=== PATIENT | male | born 1950 | race Caucasian/White ===

== ENCOUNTER → 2024-03-25 | Outpatient (CLI) | payer OTHER, SELFPAY ==
--- NOTE | 2024-03-25 09:39 | XR_ITS ---
Examination: Bilateral shoulders 6 views Technique: Shoulder AP internal rotation, AP external rotation, Y view each shoulder total 6 views Exam date and time :November 23, 2024 0945 hours INDICATIONS: Patient fell last year with injury to both shoulders, bilateral shoulder pain FINDINGS: No bilateral shoulder fracture or dislocation Moderate narrowing glenohumeral joints bilaterally Mild left shoulder calcific tendinitis IMPRESSION: No bilateral shoulder fracture or dislocation Moderate narrowing glenohumeral joints bilaterally
--- NOTE | 2024-03-25 09:39 | XR_ITS ---
Examination: Bilateral hips, AP pelvis, 5 views Technique: AP, lateral views both hips, AP pelvis, 5 views Exam date and time: March 25, 2024 0945 hours INDICATIONS: Patient fell last year with injury to both hips, persistent bilateral hip pain FINDINGS: Significant osteopenia Moderate to advanced narrowing right hip joint Advanced narrowing left hip joint with sclerosis and subarticular cyst formation left femoral head Sclerotic areas in the sacral regions No acute hip fracture Old deformity of the left femoral neck IMPRESSION: Advanced left hip osteoarthritis Suspicious for avascular necrosis left femoral head, please see the MRI hip report June 21, 2023
== END | disposition home or self-care (01) ==
LOC: CDIM 09:15
PROVIDERS: PCP Internal Medicine; Referring Provider Internal Medicine; Visit Provider Internal Medicine
DX: M16.12 Unilateral primary osteoarthritis, left hip (principal); M25.552 Pain in left hip; M25.551 Pain in right hip; M25.512 Pain in left shoulder; M25.511 Pain in right shoulder; S79.912S Unspecified injury of left hip, sequela; S79.911S Unspecified injury of right hip, sequela; S49.92XS Unspecified injury of left shoulder and upper arm, sequela; S49.91XS Unspecified injury of right shoulder and upper arm, sequela; W19.XXXS Unspecified fall, sequela
CPT/HCPCS: 73030; 73523

== ENCOUNTER → 2024-05-01 | Outpatient (CLI) | payer OTHER, SELFPAY ==
[2024-05-01 08:12] LABS: Collection Type, Urine Clean Catch
[2024-05-01 08:37] LABS: Basophils % (Auto) 1 % (0-2.5); Eosinophils # (Auto) 0.2 Thou/mm3 (0.0-0.5); Eosinophils % (Auto) 2 % (0-10); Hematocrit 44.3 % (41.0-53.0); Hemoglobin 15.8 g/dL (13.5-16.0); Immature Granulocytes % (Auto) 0 % (0-0); Immature Granulocytes Auto 0.02 Thou/mm3 (0.00-0.00); Lymphocytes # (Auto) 2.1 Thou/mm3 (1.0-4.8); Lymphocytes % (Auto) 26 % (10-50); Mean Corpuscular HGB Conc 35.7 g/dl (31.0-37.0); Mean Corpuscular Hemoglobin 31.9 pg (25.0-35.0); Mean Corpuscular Volume 89 fL (80-100); Monocytes # (Auto) 0.6 Thou/mm3 (0.0-0.8); Monocytes % (Auto) 7 % (0-12); Neutrophils # (Auto) 5.1 Thou/mm3 (1.8-7.7); Neutrophils % (Auto) 63 % (37-80); Nucleated Red Blood Cell % 0 /100 WBC (0); Platelet Count 162 Thou/mm3 (140-440); RDW Standard Deviation 39.3 fL (35.1-43.9); Red Blood Count 4.96 Miln/mm3 (4.50-5.90)
[2024-05-01 08:45] LABS: Glucose Estimated Average 189 mg/dL (80-131); Hemoglobin A1C 8.2 % Hgb (4.8-6.0)
[2024-05-01 08:49] LABS: Bilirubin,Urine Negative (Negative); Blood,Urine Negative (Negative); Clarity,Urine Clear (Clear/Hazy); Color,Urine Yellow (Lt Yel-Yel); Glucose, Urine Negative (Negative); Ketones,Urine Negative (Negative); Leukocyte Esterase,Urine Negative (Negative); Nitrite,Urine Negative (Negative); Protein,Urine 1+ (Neg - Trace); RBC,Urine 1 /hpf (0-3); Specific Gravity,Urine 1.031 (1.001-1.035); Squamous Epithelial Cell,Urine 2 /hpf (0-5); Urobilinogen,Urine Negative mg/dL (0.0-1.0); WBC,Urine 1 /hpf (0-5)
[2024-05-01 08:55] LABS: Alanine Aminotransferase 57 U/L (10-49); Albumin, Serum 4.6 gm/dL (3.4-4.8); Alkaline Phosphatase 88 U/L (46-116); Anion Gap 10 (7-16); Aspartate Amino Transferase 49 U/L (0-34); BUN/Creatinine Ratio 19 Ratio (12-20); Bilirubin,Total 0.6 mg/dL (0.3-1.2); Blood Urea Nitrogen 21 mg/dL (9-23); Calcium 9.6 mg/dL (8.3-10.6); Calcium (Corrected) 9.6 mg/dL (8.5-10.1); Cardiac Risk Estimate 4.7 RATIO (4.0-6.7); Chloride 107 mMol/L (98-107); Cholesterol 154 mg/dL (132-200); Creatinine (Component) 1.1 mg/dL (0.6-1.3); Free T4 (Free Thyroxine) 1.09 ng/dL (0.89-1.76); Globulin 2.3 gm/dL (2.3-3.5); Glucose 148 mg/dL (74-106); HDL Cholesterol 33 mg/dL (40-60); LDL Cholesterol,Calculated 76 mg/dL (0-130); Osmolality,Calculated 287 (275-295); Potassium 4.4 mMol/L (3.4-5.1); Sodium 141 mMol/L (136-145); Thyroid Stimulating Hormone 4.96 uIU/mL (0.55-4.78); Total Protein 6.9 gm/dL (5.7-8.2); Triglycerides 226 mg/dL (30-150); eGFR > 60 See Note
[2024-05-01 09:39] LABS: Creatinine MALB Rnd Ur 212 mg/dL (30-125); Microalbumin Creat Ratio 51 mg/gCrea (<30); Microalbumin, Random Urine 108 mg/L (0-300)
== END | disposition home or self-care (01) ==
PROVIDERS: PCP Internal Medicine; Referring Provider Internal Medicine; Visit Provider Internal Medicine
DX: Z00.00 Encounter for general adult medical examination without abnormal findings (principal); I12.9 Hypertensive chronic kidney disease with stage 1 through stage 4 chronic kidney disease, or unspecified chronic kidney disease; E11.22 Type 2 diabetes mellitus with diabetic chronic kidney disease; N18.31 Chronic kidney disease, stage 3a; E78.5 Hyperlipidemia, unspecified; E03.9 Hypothyroidism, unspecified; E11.65 Type 2 diabetes mellitus with hyperglycemia; E78.49 Other hyperlipidemia; M19.90 Unspecified osteoarthritis, unspecified site; M51.372 Other intervertebral disc degeneration, lumbosacral region with discogenic back pain and lower extremity pain; Z13.820 Encounter for screening for osteoporosis; Z98.1 Arthrodesis status
CPT/HCPCS: 36415; 80053; 80061; 81001; 82043; 82570; 83036; 84439; 84443; 85025

== ENCOUNTER 2024-05-21 08:16 | Outpatient (AMB) | payer OTHER, SELFPAY ==
[2024-05-21 08:46] VITALS: BP 112/78; PULSE 92; RESP 19; TEMP 36.6; O2SAT 95; BMI 26.7
--- NOTE | 2024-05-21 08:46 | ORTHONT_ITS ---
Vital signs 05/21/24 08:46 Height 1.88 m Height Method Stated Weight 94.574 kg Weight Measurement Method Standing Scale BMI 26.7 BP 112/78 Blood Pressure Source Automatic Cuff Blood Pressure Location Right Upper Arm Position Sitting Respiration 19 Pulse 92 Pulse Source Monitor Temp 97.8 F Temp Source Temporal Artery Scan Pulse Oximetry (%) 95 Oxygen Delivery Method Room Air Comment PATIENT FORGOT TO BRING IN MEDS Med/Allergies Allergies & Medications Allergies No Known Allergies Allergy (Verified 05/21/24 08:46) Medication Reconciliation gabapentin 300 mg capsule 600 mg PO BID #0 caps 10/17/15 [History Confirmed 09/07/21] metformin 500 mg tablet (Glucophage) 1,000 mg PO BIDWM #0 tabs 10/17/15 [History Confirmed 09/07/21] amiodarone 200 mg tablet 200 mg PO QDAY 08/07/19 [History Confirmed 09/07/21] aspirin 81 mg tablet,delayed release 81 mg PO QDAY 08/07/19 [History Confirmed 09/07/21] insulin glargine U-300 conc 300 unit/mL (1.5 mL) subcutaneous pen (Toujeo SoloStar U-300 Insulin) 50 unit subcut QDAY PRN high sugar 08/07/19 [History Confirmed 09/07/21] levothyroxine 25 mcg tablet 25 mcg PO QDAY 05/16/20 [History Confirmed 09/07/21] vitamin A-vitamin C-vit E-min tablet 1 tab PO QDAY 05/16/20 [History Confirmed 09/07/21] apixaban 2.5 mg tablet (Eliquis) 2.5 mg PO BID #60 tabs 09/28/20 [Rx Confirmed 09/07/21] atorvastatin 40 mg tablet (Lipitor) 40 mg PO QPM #30 tabs 09/28/20 [Rx Confirmed 09/07/21] Exam Exam Patient is in no acute distress and is cooperative with the examination today. Breathing is nonlabored. In no respiratory distress. Patient has no paraspinal tenderness. Spinal deformity cannot be appreciated. The gait of the patient is nonantalgic Bilateral extremities were evaluated and demonstrates sensation intact to light touch. Palpable pedal pulses are present. No significant edema is present. Bilateral knees were examined and the patient has full strength and range of motion.. The right hip was examined. Patient was able to flex to 90 degrees, adduct to 30 degrees, abduct to 40 degrees, internally rotate to 20 degrees, and externally rotate to 20 degrees. Patient has a negative logroll. Stinchfield is negative. The patient is nontender diffusely to touch. The left hip was examined. Patient was able to flex to 90 degrees, adduct to 30 degrees, abduct to 40 degrees, internally rotate to 20 degrees, and externally rotate to 20 degrees. Patient has a negative logroll. The stinchfield is negative. X-rays demonstrate significant joint space narrowing of the left hip. Assessment and Plan Problem List (1) Arthritis of left hip: Status: Acute Plan: Patient is a 74-year-old male with left hip arthritis and avascular necrosis. Interestingly, pain is actually in the buttocks he has a history of recent spine surgery. He has pain that radiates down both legs. He has a completely benign hip exam and has preserved logroll. I do think he has hip issues but I do not think this is the cause of his pain. We are getting his MRI of the lumbar spine Plan Patient is a 74-year-old male with left hip avascular necrosis and severe arthri tic changes. He has a history of spine surgery and all the pain is actually in his buttocks. His hip examination is completely benign. We will order an MRI of his lumbar spine as the majority of his pain appears to be coming from the spine as he has no pain with logroll and a very benign hip exam Advanced Care Planning Discussion Advance care planning discussed with:: patient Office Procedures GNS Level of Care Nursing/Assessment Patient Status: Established Patient Nursing Assessment/Reassesment: Medication Reconciliation, Update PMH in EMR and Vital Signs Coordination of Care: Complex Care and Chronic Disease 1-5, Education Complex Pt/Fam, Consent,records obtained, informed consent, Results/Orders obtained and Staff clarify orders Established Patient Charge Established Patient Point Assignment: 95 Established Patient Point Charge: EP Level 3 (80-115) MA Intake Visit Data Collection New Patient or Established: Established Patient (seen at [facility] within 3 years) Reason for Visit:: BILATERAL HIP PAIN Seen by Clinical Staff ONLY (RN/MA): No Verbal consent obtained for Telemed visit?: No Paraoptometric Required: No PCP or OBGYN visit in last 3 months: Yes Hx Now: No Do You Feel Safe at Home: Yes Authorities Contacted: N/A Questionairres Past Medical History Past Medical History Have you ever been diagnosed with any of the following: Neurological Problems Transient Ischemic Attacks (TIA): Yes Seizures: No Peripheral Neuropathy: Yes Cardiology Problems Myocardial Infarction: Yes Cardiac Arrhythmia: No Atrial Fibrillation: Yes Angina: No Coronary Artery Disease: No Atherosclerotic Heart Disease: No Peripheral Vascular Disease: No Aneurysm: No Congestive Heart Failure: No Congenital Heart Disease: No Valvular Heart Disease: No Rheumatic Fever: No Cardiomyopathy: No Edema: No Pericarditis: No Cellulitis: No Deep Vein Thrombosis: No Hypertension: Yes Varicose Veins: No Respiratory Problems Chronic Obstructive Pulmonary Disease (COPD): No Asthma: No Stomache/Intestinal Problems Gastrointestinal Bleed: Yes Genital/Urinary Problems Renal Disease: No Musculoskeletal Problems Arthritis: Yes Endocrine Problems Diabetes Mellitus Type 1: No Diabetes Mellitus Type 2: Yes Hypoglycemia: No Albaro's Syndrome: No [place]'s Disease: No Hyperthyroidism: No Hypothyroidism: No Parathyroid Disease: No Pituitary Disease: No Systemic Lupus Erythematosus: No Syndrome of Inappropriate Antidiuretic Hormone: No Adrenal Disease: No Blood Problems Sickle Cell Disease: No Psychologic Problems Anxiety: Yes Other Problems Blood Transfusions: No Blood Transfusion Reaction: No Anesthesia Reactions: No Surgical History Pacemaker: No Subjective Visit Visit for: new patient and hip Immunization / Flu Flu Vaccine in the Last 12 Months: No Flu Vaccine Exclusion Criteria: No Exclusion Criteria History of Present Illness Chief complaint: BILATERAL HIP PAIN 06/21/1979 Date of injury / onset of symptoms: PAIN Date of 1st surgery (if applicable): SPINE SX ON 95 Patient is a 74-year-old male with bilateral buttocks pain. He had prior spine surgery over 20 years ago. He reports the pain is primarily in the buttocks. He has no pain in the groin. He is able to walk. He was referred here as he had a prior MRI that shows avascular necrosis of the left femoral head. He has no difficulty putting on socks and shoes Personal History Red flag PMH: BMI BMI Counceling provided: Yes Pain Pain level (0-10): 6 Pain duration: ALL DAY Pain location: buttock and other (specify) (BACK ) Pain quality: sharp, dull and aching Pain timing: night, increases with activity and stairs Associated signs & symptoms: none Ambulatory data Ambulatory device: none Treatments Improvement with previous injections: No Improvement with PT: No Improvement with NSAIDS: no Review of Systems Review of Systems: All systems negative unless otherwise noted in HPI.
== END 2024-05-21 10:03 | disposition home or self-care (01) ==
PROVIDERS: PCP Internal Medicine; Referring Provider Internal Medicine; Supervising Provider Orthopaedic Surgery Adult Reconstructive Orthopaedic Surgery; Visit Provider Orthopaedic Surgery Adult Reconstructive Orthopaedic Surgery
DX: M16.12 Unilateral primary osteoarthritis, left hip (principal); I25.2 Old myocardial infarction; E11.42 Type 2 diabetes mellitus with diabetic polyneuropathy; I48.91 Unspecified atrial fibrillation; I10 Essential (primary) hypertension; Z86.73 Personal history of transient ischemic attack (TIA), and cerebral infarction without residual deficits
CPT/HCPCS: 99213; G0463

== ENCOUNTER → 2024-06-06 | Outpatient (CLI) | payer OTHER, SELFPAY ==
--- NOTE | 2024-06-06 | XR_ITS ---
Examination: MRI lumbar spine without contrast Date and time of exam: June 06, 2024 1532 hours Patient's: Low back pain radiating down both hips 1 year Technique: Multiple MRI axial and sagittal sections lumbar spine. Sagittal T2-weighted images, TR 3500, TE 118 T1 weighted transverse sections, TR 688 T8.5, T2-weighted sagittal sections T1 weighted sagittal sections TR 621, TE 30 T2 axial sections, TR 4, 190, TE 84. Findings: Adequate alignment lumbar vertebral bodies Lumbar fusion L4-S1 with anatomic alignment L5-S1 no disc protrusion L4-L5 no disc protrusion L3-L4 6 mm left 3 mm right foraminal disc bulges with no ganglionic compression L2-L3 no disc protrusion L1-L2 no disc protrusion IMPRESSION: Lumbar fusion L4-S1 with anatomic alignment No significant acquired spinal stenosis
== END | disposition home or self-care (01) ==
LOC: SMRI 14:20
PROVIDERS: PCP Internal Medicine; Referring Provider Psychiatry & Neurology Neurology; Visit Provider Orthopaedic Surgery Adult Reconstructive Orthopaedic Surgery
DX: M43.27 Fusion of spine, lumbosacral region (principal)
CPT/HCPCS: 72148

== ENCOUNTER 2024-06-09 13:27 | Outpatient (AMB) | payer OTHER, SELFPAY ==
[2024-06-09 13:42] VITALS: BP 100/69; PULSE 82; RESP 17; TEMP 35.9; O2SAT 94; BMI 26.4
--- NOTE | 2024-06-09 13:42 | ORTHONT_ITS ---
Vital signs 06/09/24 13:42 Height 1.88 m Height Method Stated Weight 93.582 kg Weight Measurement Method Standing Scale BMI 26.4 BP 100/69 Blood Pressure Source Automatic Cuff Blood Pressure Location Left Upper Arm Position Sitting Respiration 17 Pulse 82 Pulse Source Monitor Temp 96.6 F L Temp Source Temporal Artery Scan Pulse Oximetry (%) 94 L Oxygen Delivery Method Room Air Med/Allergies Allergies & Medications Allergies No Known Allergies Allergy (Verified 06/09/24 13:43) Medication Reconciliation gabapentin 300 mg capsule 600 mg PO BID #0 caps 10/17/15 [History Confirmed 04/04] metformin 500 mg tablet (Glucophage) 1,000 mg PO BIDWM #0 tabs 10/17/15 [History Confirmed 06/09/24] amiodarone 200 mg tablet 200 mg PO QDAY 08/07/19 [History Confirmed 06/09/24] aspirin 81 mg tablet,delayed release 81 mg PO QDAY 08/07/19 [History Confirmed 06/09/24] insulin glargine U-300 conc 300 unit/mL (1.5 mL) subcutaneous pen (Toujeo SoloStar U-300 Insulin) 50 unit subcut QDAY PRN high sugar 08/07/19 [History Confirmed 06/09/24] levothyroxine 25 mcg tablet 25 mcg PO QDAY 05/16/20 [History Confirmed 06/09/24] vitamin A-vitamin C-vit E-min tablet 1 tab PO QDAY 05/16/20 [History Confirmed 06/09/24] apixaban 2.5 mg tablet (Eliquis) 2.5 mg PO BID #60 tabs 09/28/20 [Rx Confirmed 06/09/24] atorvastatin 40 mg tablet (Lipitor) 40 mg PO QPM #30 tabs 09/28/20 [Rx Confirmed 06/09/24] Exam Exam Patient is in no acute distress and is cooperative with the examination today. Breathing is nonlabored. In no respiratory distress. Patient has no paraspinal tenderness. Spinal deformity cannot be appreciated. The gait of the patient is nonantalgic Bilateral extremities were evaluated and demonstrates sensation intact to light touch. Palpable pedal pulses are present. No significant edema is present. Bilateral knees were examined and the patient has full strength and range of motion.. The right hip was examined. Patient was able to flex to 90 degrees, adduct to 30 degrees, abduct to 40 degrees, internally rotate to 20 degrees, and externally rotate to 20 degrees. Patient has a negative logroll. Stinchfield is negative. The patient is nontender diffusely to touch. The left hip was examined. Patient was able to flex to 90 degrees, adduct to 30 degrees, abduct to 40 degrees, internally rotate to 20 degrees, and externally rotate to 20 degrees. Patient has a negative logroll. The stinchfield is negative. X-rays demonstrate significant joint space narrowing of the left hip. Assessment and Plan Problem List (1) Arthritis of left hip: Status: Acute Plan: Patient is a 74-year-old male with left hip arthritis and low back pain. Interestingly, pain is actually in the buttocks and low back pain as he has a history of recent spine surgery. He reports the pain is all in the back despite his left hip arthritis. He has no groin pain and a benign hip examination. He has axial back pain and I recommend treatment for this. We recommend referral to a spine doctor as the majority of his pain is located in the lumbar spine and he has no groin pain whatsoever. We discussed that it is still indeterminate, we could try a hip injection to see if the pain improves but it is very clear that the pain is located primarily to the low back. Advanced Care Planning Discussion Advance care planning discussed with:: patient Office Procedures GNS Level of Care Nursing/Assessment Patient Status: Established Patient Nursing Assessment/Reassesment: Medication Reconciliation, Update PMH in EMR and Vital Signs Coordination of Care: Complex Care and Chronic Disease 1-5, Consent,records obtained, informed consent, Education Simp Pt/Fam, Results/Orders obtained and Staff clarify orders Established Patient Charge Established Patient Point Assignment: 90 Established Patient Point Charge: EP Level 3 (80-115) MA Intake Visit Data Collection New Patient or Established: Established Patient (seen at [facility] within 3 years) Reason for Visit:: HIP/LOWER BACK MRI RESULTS Seen by Clinical Staff ONLY (RN/MA): No Verbal consent obtained for Telemed visit?: No [employer] Required: No PCP or OBGYN visit in last 3 months: Yes Hx Now: No Do You Feel Safe at Home: Yes Authorities Contacted: N/A Questionairres Past Medical History Past Medical History Have you ever been diagnosed with any of the following: Neurological Problems Transient Ischemic Attacks (TIA): Yes Seizures: No Peripheral Neuropathy: Yes Cardiology Problems Myocardial Infarction: Yes Cardiac Arrhythmia: No Atrial Fibrillation: Yes Angina: No Coronary Artery Disease: No Atherosclerotic Heart Disease: No Peripheral Vascular Disease: No Aneurysm: No Congestive Heart Failure: No Congenital Heart Disease: No Valvular Heart Disease: No Rheumatic Fever: No Cardiomyopathy: No Edema: No Pericarditis: No Cellulitis: No Deep Vein Thrombosis: No Hypertension: Yes Varicose Veins: No Respiratory Problems Chronic Obstructive Pulmonary Disease (COPD): No Asthma: No Smoking: No Smoking Cessation Counseling: No Smoking Exposure: No Stomache/Intestinal Problems Gastrointestinal Bleed: Yes Genital/Urinary Problems Renal Disease: No Musculoskeletal Problems Arthritis: Yes Endocrine Problems Diabetes Mellitus Type 1: No Diabetes Mellitus Type 2: Yes Hypoglycemia: No [place]'s Syndrome: No Kiran's Disease: No Hyperthyroidism: No Hypothyroidism: No Parathyroid Disease: No Pituitary Disease: No Systemic Lupus Erythematosus: No Syndrome of Inappropriate Antidiuretic Hormone: No Adrenal Disease: No Blood Problems Sickle Cell Disease: No Psychologic Problems Anxiety: Yes Other Problems Blood Transfusions: No Blood Transfusion Reaction: No Anesthesia Reactions: No Surgical History Pacemaker: No Subjective Visit Visit for: follow up visit and hip (LOWER BACK ) Immunization / Flu Flu Vaccine in the Last 12 Months: Yes Flu Vaccine Exclusion Criteria: Already Received History of Present Illness Chief complaint: BILATERAL HIP PAIN 06/21/1979 Date of injury / onset of symptoms: PAIN Date of 1st surgery (if applicable): SPINE SX ON 95 Patient is a 74-year-old male with bilateral buttocks pain. He had prior spine surgery over 20 years ago. He reports the pain is primarily in the low back to the buttocks. He has no pain in the groin. He is able to walk. He was referred here as he had a prior MRI that shows avascular necrosis of the left femoral head. He has no difficulty putting on socks and shoes Personal History Red flag PMH: none BMI Counceling provided: Yes Pain Pain level (0-10): 7 Pain duration: ALL DAY Pain location: outside (lateral) Pain quality: other (specify) (UNABLE TO EXPLAIN QUALITY ) Pain timing: other (specify) (ALL DAY) Associated signs & symptoms: stiffness and none Ambulatory data Ambulatory device: none Walking distance (minutes): 5 Treatments Number of previous injections: 0 Improvement with previous injections: No Number of Physical Therapy sessions: 1 Improvement with PT: No Improvement with NSAIDS: n/a Review of Systems Review of Systems: All systems negative unless otherwise noted in HPI.
== END 2024-06-09 14:06 | disposition home or self-care (01) ==
LOC: HODSRG 13:27
PROVIDERS: PCP Internal Medicine; Referring Provider Internal Medicine; Supervising Provider Orthopaedic Surgery Adult Reconstructive Orthopaedic Surgery; Visit Provider Orthopaedic Surgery Adult Reconstructive Orthopaedic Surgery
DX: M16.12 Unilateral primary osteoarthritis, left hip (principal); M54.50 Low back pain, unspecified; I10 Essential (primary) hypertension; I48.91 Unspecified atrial fibrillation; E11.9 Type 2 diabetes mellitus without complications; I25.2 Old myocardial infarction; Z86.73 Personal history of transient ischemic attack (TIA), and cerebral infarction without residual deficits
CPT/HCPCS: 99213; G0463

== ENCOUNTER → 2024-08-26 | Outpatient (CLI) | payer OTHER, SELFPAY ==
[2024-08-26 09:01] LABS: Creatinine,Random Urine 238 mg/dL (30-125)
[2024-08-26 09:14] LABS: Alanine Aminotransferase 56 U/L (10-49); Albumin, Serum 4.4 gm/dL (3.4-4.8); Albumin/Globulin Ratio 1.9 (1.2-2.2); Alkaline Phosphatase 87 U/L (46-116); Anion Gap 8 (7-16); Aspartate Amino Transferase 53 U/L (0-34); BUN/Creatinine Ratio 9 Ratio (12-20); Bilirubin,Total 0.8 mg/dL (0.3-1.2); Blood Urea Nitrogen 13 mg/dL (9-23); Calcium 9.3 mg/dL (8.3-10.6); Calcium (Corrected) 9.3 mg/dL (8.5-10.1); Carbon Dioxide 22.2 mMol/L (20.0-31.0); Cardiac Risk Estimate 5.6 RATIO (4.0-6.7); Chloride 111 mMol/L (98-107); Cholesterol 141 mg/dL (132-200); Creatinine (Component) 1.4 mg/dL (0.6-1.3); Globulin 2.3 gm/dL (2.3-3.5); Glucose 288 mg/dL (74-106); HDL Cholesterol 25 mg/dL (40-60); LDL Cholesterol,Calculated 51 mg/dL (0-130); Osmolality,Calculated 292 (275-295); Potassium 4.4 mMol/L (3.4-5.1); Sodium 141 mMol/L (136-145); Total Protein 6.7 gm/dL (5.7-8.2); Triglycerides 324 mg/dL (30-150); eGFR 53 See Note
[2024-08-26 09:25] LABS: Glucose Estimated Average 194 mg/dL (80-131); Hemoglobin A1C 8.4 % Hgb (4.8-6.0)
== END | disposition home or self-care (01) ==
LOC: COPL 06:43
PROVIDERS: PCP Internal Medicine; Referring Provider Internal Medicine; Visit Provider Internal Medicine
DX: E78.5 Hyperlipidemia, unspecified (principal); E11.9 Type 2 diabetes mellitus without complications; I10 Essential (primary) hypertension
CPT/HCPCS: 36415; 80053; 80061; 82570; 83036

== ENCOUNTER → 2024-10-15 | Outpatient (CLI) | payer OTHER, SELFPAY ==
--- NOTE | 2024-10-15 | XR_ITS ---
Examination: Bilateral forms 4 views Technique one AP lateral right and left forearms 4 views Date and time: 27/09/2024 0812 hours INDICATIONS: Patient fell October 05, 2024 with injury to both forearms, bilateral forearm pain. FINDINGS: No fracture involving either forearm On the lateral view left forearm the distal ulna is dorsally positioned IMPRESSION: No fractures Recommend follow-up true lateral view of the left wrist to exclude dorsal dislocation distal left ulna
--- NOTE | 2024-10-15 | XR_ITS ---
Examination: Shoulder bilateral, 6 views Technique: Shoulder AP internal rotation, AP external rotation, Y view each shoulder total 6 views Exam date and time :October 15, 2024 0804 hours INDICATIONS: Patient fell September 27, 2024 with injury to both shoulders, bilateral shoulder pain. FINDINGS: Moderate osteopenia. Bilateral moderate narrowing glenohumeral joints. No fracture or dislocation involving either shoulder IMPRESSION: No fracture or dislocation involving either shoulder
--- NOTE | 2024-10-15 | XR_ITS ---
Exam: elbow bilateral, 6 views Technique: Elbow AP, oblique, lateral each elbow total 6 views Exam date and time: October 15, 2024 0804 hours INDICATIONS: Patient fell September 27, 2024 with injury to both elbows, bilateral elbow pain. FINDINGS: No fracture or dislocation involving either elbow No foreign bodies IMPRESSION: No fracture or dislocation involving either elbow.
== END | disposition home or self-care (01) ==
LOC: CDIM 07:39
PROVIDERS: PCP Internal Medicine; Referring Provider Internal Medicine; Visit Provider Internal Medicine
DX: S59.902A Unspecified injury of left elbow, initial encounter (principal); S59.901A Unspecified injury of right elbow, initial encounter; S59.912A Unspecified injury of left forearm, initial encounter; S59.911A Unspecified injury of right forearm, initial encounter; S49.92XA Unspecified injury of left shoulder and upper arm, initial encounter; S49.91XA Unspecified injury of right shoulder and upper arm, initial encounter; W19.XXXA Unspecified fall, initial encounter
CPT/HCPCS: 73030; 73080; 73090